=== PATIENT | male | born 1990 | race Caucasian/White ===

== ENCOUNTER 2019-07-12 23:29 | Emergency (ER) | payer MEDICAID ==
[~2019-07-12] VITALS: Ht 180.3 cm; Wt 90.7 kg
[~2019-07-12 23:29] MED LIST: ALBUTEROL SULF8.5 GM INH; AZITHROMYCIN250 MG ORAL; MYLANTA30 M1 PO; NKM; PROMETHAZINE-C118 M1 ORAL; RANITIDINE HCL150 MG ORAL
[2019-07-12 23:40] VITALS: BP 140/92
--- NOTE | 2019-07-12 23:40 | NUR ---
ED Nurse Note: Pt walked into ED from home for c/o intermittent abdominal pain onset three months ago. Pt states pain started on R flank side and has now moved into lower abdomen area. Pt reports nausea, denies vomiting or diarrhea. Pt also denies SOB, cough or fever. Pt is aaox4, breathing is normal and unlabored, no cardiac distress.
[2019-07-13] MEDS ORDERED: OMEPRAZOLE20 M2 ORAL (00:14)
[2019-07-13] MEDS ORDERED: DICYCLOMINE HCL10 MG ORAL (00:14)
[2019-07-13] MEDS ORDERED: Dicyclomine HCl 10mg/5ml oral soln ORAL ONE (00:15)
[2019-07-13] MEDS ORDERED: Lidocaine 2% Visc 15ml soln ORAL ONE (00:15)
[2019-07-13 00:30] VITALS: BP 141/92
--- NOTE | 2019-07-13 00:30 | NUR ---
ER DISCHARGE NOTE: Patient is cleared to be discharged per ERMD, pt is aox4, on room air, with stable vital signs. pt was given dc instructions, pt was able to verbalize understanding, pt id band removed. pt is able to ambulate with steady gait. pt took all belongings.
--- NOTE | 2019-07-13 02:44 | Emergency Room Report ---
History of Present Illness General Chief Complaint: Abdominal Pain Source: Patient Present Illness HPI Patient is a 28-year-old male who presents after right-sided flank pain for 1 month. He reports having increased abdominal distention as well as increased suprapubic abdominal discomfort. Reports having persistent bloating. States this began approximate 1 month ago. He denies any worsening of the pain over this time. Had not been have any vomiting. He reports having some bowel movements however these were having some persistent discomfort. Allergies: Coded Allergies: NO KNOWN ALLERGIES (Unverified Allergy, Unknown, 11/25/14) COVID-19 Screening Contact w/high risk pt: No Recent Travel to affected area: No Experienced COVID-19 symptoms?: No COVID-19 Testing performed SPINDLE CARVER: No Patient History Past Medical History: see triage record Reviewed Nursing Documentation: PMH: Agreed; PSxH: Agreed Nursing Documentation-PMH Past Medical History: No History, Except For Hx Gastrointestinal Problems: Yes - gastritis Review of Systems All Other Systems: negative except mentioned in HPI Physical Exam Vital Signs Date Time Temp Pulse Resp B/P (MAP) Pulse Ox O2 Delivery O2 Flow Rate FiO2 07/12/19 23:36 98.2 61 16 140/92 (108) 100 Room Air Sp02 EP Interpretation: reviewed, normal General Appearance: normal inspection, well appearing, no apparent distress, alert, GCS 15, non-toxic, obese Head: atraumatic ENT: normal ENT inspection, hearing grossly normal, normal voice Neck: normal inspection, full range of motion, supple, no bony tend Respiratory: normal inspection, lungs clear, normal breath sounds, no respiratory distress, no retraction, no wheezing Cardiovascular #1: regular rate, rhythm, no edema Gastrointestinal: normal inspection, normal bowel sounds, non tender, soft, no guarding, no hernia Genitourinary: no CVA tenderness Musculoskeletal: normal inspection, back normal, normal range of motion Neurologic: alert, responsive, speech normal, normal inspection Psychiatric: normal inspection, judgement/insight normal, mood/affect normal Medical Decision Making Diagnostic Impression: Primary Impression: Nonspecific abdominal pain ER Course Patient presented for abdominal pain. Differential diagnoses included ischemic bowel, appendicitis, perforated viscus, abdominal aortic aneurysm, inferior myocardial infarction, viral gastroenteritis among others. patient has a benign exam and does not appear to require any imaging or laboratory testing at this time. Patient's pain appears to be somewhat chronic. He was advised to follow- up with primary care physician for further evaluation and GI referral. Patient appears to be stable for close outpatient follow up. Patient will be discharged home. He is given prescription for acid blockers as well as antispasmodic medication. He is advised to return if worse. Last Vital Signs Date Time Temp Pulse Resp B/P (MAP) Pulse Ox O2 Delivery O2 Flow Rate FiO2 07/13/19 00:30 98.2 70 19 141/92 100 Room Air Status: improved Disposition: HOME, SELF-CARE Condition: Stable Scripts Omeprazole (OMEPRAZOLE) 20 Mg Capsule.dr 20 MG ORAL DAILY, #30 CAP Prov: Jony Villeda MD 07/13/19 Dicyclomine Hcl* (DICYCLOMINE HCL*) 10 Mg Capsule 10 MG ORAL QID, #20 CAP Prov: Jony Villead MD 07/13/19 Patient Instructions: Abdominal Pain, Adult Additional Instructions: Follow up with your doctor for recheck and further workup of pain. Return if worse. Jony Villeda MD July 13, 2019 02:44
== END 2019-07-13 00:30 | disposition home or self-care (01) ==
LOC: EMR 23:59
DX: R10.9 Unspecified abdominal pain (principal); E66.9 Obesity, unspecified; Z68.27 Body mass index [BMI] 27.0-27.9, adult
CPT/HCPCS: 99282